=== PATIENT | male | born 1975 | race Two or more races ===

== ENCOUNTER → 2024-05-12 | Emergency (ER) | payer OTHER ==
[~2024-05-12] VITALS: Ht 147.3 cm; Wt 86.2 kg
[~2024-05-12] MED LIST: CHILDREN'S ASPI81 MG; CLONAZEPAM 1 MG TABLET PO ONE; CLONAZEPAM1 M1 PO; COZAAR25 MG PO; DEXTROSE 5 %-0.45 % SOD CHLORD 1,000 ML IV STA; FAMOTIDINE/PF 20 MG/2 ML VIAL ONE; FAMOtidine 10 MG/ML (4ML VIAL) IV STA; FAMOtidine 40 MG TABLET PO ONE; GLUMETZA1000 MG; LOPRESSOR25 MG; LORazepam 2 MG/ML VIAL IM ONE; LORazepam 2 MG/ML VIAL IM STA; LORazepam 2 MG/ML VIAL ONE; METHADONE PO NR; METHADONE PO ONE; PEPCID AC20 MG; SEROQUEL400 MG PO
[2024-05-12 17:44] LABS: HEMATOCRIT 39.1 % (39.0-48.0); HEMOGLOBIN 13.2 g/dL (13-16.00); MEAN CORPUSCULAR HEMOGLOBIN 29.4 pg (27.00-32.0); MEAN CORPUSCULAR HGB CONC 33.9 g/dl (32.0-36.0); PLATELET COUNT 320 K/uL (150-450); RED CELL DISTRIBUTION WIDTH 15.6 % (11.5-14.5)
[2024-05-12 18:04] LABS: INR 1.11; PARTIAL THROMBOPLASTIN TIME 27.9 SECONDS (22.0-34.0); PROTHROMBIN TIME 11.6 SECONDS (9.0-11.5)
[2024-05-12 18:15] LABS: ALBUMIN 3.8 gm/dL (3.4-5.0); BILIRUBIN TOTAL 0.41 mg/dL (0.3-1.2); BILIRUBIN,CONJUGATED 0.13 mg/dL (0.0-0.2); BILIRUBIN,UNCONJUGATED 0.28 mg/dL (0.0-0.6); CALCIUM 9.3 mg/dL (8.5-10.1); CREATININE SERUM 0.64 mg/dL (0.70-1.30); GFR 134.64; POTASSIUM 4.28 mEq/L (3.5-5.1); TOTAL PROTEIN 8.6 gm/dL (6.4-8.2)
[2024-05-12 18:32] LABS: URINE APPEARANCE Clear; URINE BILIRRUBIN Negative (NEGATIVE); URINE BLOOD Negative; URINE COLOR Yellow; URINE GLUCOSE Negative (NEGATIVE); URINE KETONE Negative (NEGATIVE); URINE LEUKOCYTE Negative; URINE NITRATE Negative; URINE PROTEIN Negative (NEGATIVE)
[2024-05-12 18:33] LABS: URINE BACTERIA 0 uL (0.0-1933); URINE EPITHELIAL CELLS 1.3 uL (0.0-38.8); URINE RBC 1.9 uL (0.0-20.8); URINE WBC 1.8 uL (0.0-23.2)
[2024-05-12 18:52] LABS: COCAINE NEGATIVE (NEGATIVE); OPIATES NEGATIVE (NEGATIVE); THC ( Cannabinoids) NEGATIVE (NEGATIVE)
[2024-05-12 18:58] LABS: METHADONE POSITIVE (NEGATIVE)
== END | disposition designated cancer center or children's hospital (05) ==
LOC: ER 13:39
PROVIDERS: General Practice
DX: R45.851 Suicidal ideations (principal); F32.9 Major depressive disorder, single episode, unspecified; Z20.822 Contact with and (suspected) exposure to COVID-19; I10 Essential (primary) hypertension; E11.9 Type 2 diabetes mellitus without complications; Z79.84 Long term (current) use of oral hypoglycemic drugs; Z88.8 Allergy status to other drugs, medicaments and biological substances; Z91.013 Allergy to seafood